=== PATIENT | female | born 1995 | race Caucasian/White ===

== ENCOUNTER 2016-08-03 20:35 | Outpatient (CLI) | payer OTHER ==
[2016-08-03] MEDS ORDERED: HYDROXYZINE PAMOATE 50 MG CAPSULE PO ONE (21:23)
[2016-08-03 21:26] LABS: AMORPHOUS SEDIMENT,URINE TRACE /HPF; APPEARANCE,URINE TURBID; BILIRUBIN,URINE NEGATIVE (NEGATIVE); GLUCOSE, URINE NEGATIVE (NEGATIVE); KETONES,URINE NEGATIVE (NEGATIVE); LEUKOCYTE ESTERASE,URINE SMALL (NEGATIVE); NITRITE,URINE NEGATIVE (NEGATIVE); PROTEIN,URINE NEGATIVE (NEGATIVE); URINE SPECIFIC GRAVITY 1.014; UROBILINOGEN,URINE NEGATIVE mg/dL (<2.0)
[2016-08-03] MEDS ORDERED: HYDROXYZINE PAMOATE 50 MG CAPSULE ONE (21:30)
[2016-08-03 21:37] LABS: URINE BARBITURATES SCREEN NEGATIVE; URINE METHADONE SCREEN NEGATIVE; URINE PHENCYCLIDINE SCREEN NEGATIVE
--- NOTE | 2016-08-04 04:46 | L&D Admission Assessment ---
LD ADM ASMT Datetime Report Generated by CPN: 08/04/2016 04:45 PATIENT ASSESSMENT Assessment Type: Triage (08/03/2016 20:53:Eunice Montenegro, RN) PAIN Pain Scale: 1 (08/03/2016 21:45:Eunice Montenegro, RN) Pain Scale: 2 (08/03/2016 20:53:Eunice Montenegro, RN) Pain Presence: Constant (08/03/2016 21:45:Eunice Montenegro, RN) Pain Presence: Constant (08/03/2016 20:53:Eunice Montenegro, RN) Pain Type: Ache (08/03/2016 21:45:Eunice Montenegro, RN) Pain Type: throbbing (08/03/2016 20:53:Eunice Montenegro RN) Pain Location: Abdomen (08/03/2016 21:45:Eunice Montenegro, RN) Pain Location: Abdomen (Annotations: from right rib cage to right hip, patient states she thinks that she may have pulled something trying to get away) (08/03/2016 20:53:Eunice Montenegro, RN) Pain Goal: 1 (08/03/2016 20:53:Eunice Montenegro RN) Pain Related to Contraction: No (08/03/2016 20:53:Eunice Montenegro, RN) CONTRACTIONS Frequency (min): none (08/03/2016 21:45:Eunice Montenegro, RN) Frequency (min): none (08/03/2016 21:15:Eunice Montenegro, RN) Resting Tone Kunkle: Relaxed (08/03/2016 21:45:Eunice Montenegro, RN) Resting Tone Kunkle: Relaxed (08/03/2016 21:15:Euince Montenegro, RN) NEURO Level of Consciousness: Fully Conscious (08/03/2016 20:53:Eunice Montenegro, RN) DTR's/Clonus: DTRs 2+; No Clonus (08/03/2016 20:53:Eunice Montenegro, RN) Headache: Denies (08/03/2016 20:53:Eunice Montenegro, RN) Dizziness: No (08/03/2016 20:53:Eunice Montenegro, RN) Blurred Vision: No (08/03/2016 20:53:Eunice Montenegro, RN) Extremity Numbness/Tingling : None (08/03/2016 20:53:Eunice Montenegro, RN) Extremity Movement: Full Range of Motion (08/03/2016 20:53:Eunice Montenegro, RN) CARDIOVASCULAR Heart Rhythm: Regular (08/03/2016 20:53:Eunice Montenegro, RN) Nailbeds: [place] (08/03/2016 20:53:Eunice Montenegro, RN) Capillary Refill: Less than 3 Seconds (08/03/2016 20:53:Eunice Montenegro, RN) Lower Extremities Edema Degree: None (08/03/2016 20:53:Eunice Montenegro, RN) Upper Extremities Edema: None (08/03/2016 20:53:Eunice Montenegro, RN) Upper Extremities Edema Degree: None (08/03/2016 20:53:Eunice Montenegro, RN) Facial Edema: None (08/03/2016 20:53:Eunice Montenegro RN) Day's Sign Left Leg: Negative (08/03/2016 20:53:Eunice Montenegro RN) Day's Sign Right Leg: Negative (08/03/2016 20:53:Eunice Montenegro RN) DVT RISK ASSESSMENT DVT Risk Age: Age less than 41 years (08/03/2016 20:53:Eunice Montenegro RN) DVT Risk BMI: BMI<31 (08/03/2016 20:53:Eunice Montenegro RN) DVT Risk Surgery: None Applicable (08/03/2016 20:53:Eunice Montenegro RN) DVT Risk Other: Women Only- or (<1 month) (08/03/2016 20:53:Eunice Montenegro RN) DVT Risk Total: 1 (08/03/2016 20:53:QS system process) DVT Risk Text: Low Risk (<10%) No specific measures, early ambulation (08/03/2016 20:53:QS system process) RESPIRATORY Respiratory Effort: Unlabored; Regular Rhythm; Equal Expansion (08/03/2016 20:53:Eunice Montenegro, RN) Breath Sounds, Left: Clear and Equal (08/03/2016 20:53:Eunice Montenegro, RN) Breath Sounds, Right: Clear and Equal (08/03/2016 20:53:Eunice Montenegro, RN) Cough Productivity: None (08/03/2016 20:53:Eunice Montenegro, RN) GASTROINTESTINAL Nausea/Vomiting: Present (Annotations: nausea) (08/03/2016 20:53:Eunice Montenegro, RN) Bowel Sounds: Normoactive; All Quadrants (08/03/2016 20:53:Eunice Montenegro, RN) RUQ Epigastric Pain: Denies (08/03/2016 20:53:Eunice Montenegro, RN) Bowel Patterns: Soft, Formed Stool (08/03/2016 20:53:Eunice Montenegro, RN) Hemorrhoids: None (08/03/2016 20:53:Eunice Montenegro, RN) Diet Type: Regular diet (08/03/2016 20:53:Eunice Montenegro, RN) Last Meal: 08/03/2016 15:00 (08/03/2016 20:53:Eunice Montenegro, RN) GENITOURINARY Bladder: Nondistended (08/03/2016 20:53:Eunice Montenegro, RN) Frequency of Urination: No (08/03/2016 20:53:Eunice Montenegro, RN) Urination Burning: No (08/03/2016 20:53:Eunice Montenegro, RN) CVA Tenderness: No (08/03/2016 20:53:Eunice Montenegro, RN) INTEGUMENTARY Skin Color: Normal for Race (08/03/2016 20:53:Euniec Montenegro, RN) Skin Temperature: Warm (08/03/2016 20:53:Eunice Montenegro, RN) Skin Moisture: Dry (08/03/2016 20:53:Eunice Montenegro, RN) Surgical Scars: none (08/03/2016 20:53:Eunice Montenegro, RN) ADE SKIN ASSESSMENT Ade Scale Sensory Perception: No Impairment- Responds to verbal commands. Has no sensory deficit which would limit ability to feel or voice pain or discomfort (08/03/2016 20:53:Eunice Montenegro RN) Ade Scale Moisture: Rarely Moist- Skin is usually dry. Linen only requires changing at routine intervals (08/03/2016 20:53:Eunice Montenegro RN) Ade Scale Activity: Walks Frequently- Walks outside the room at least twice a day and inside room at least every 2 hours during the day. (08/03/2016 20:53:Eunice Montenegro RN) Ade Scale Mobility: No Limitations- Makes major and frequent changes in position without assistance (08/03/2016 20:53:Eunice Montenegro RN) Ade Scale Nutrition: Excellent- Eats most of every meal. Never refuses a meal. Usually eats a total of 4 or more servings of meat and dairy products. Occasionally eats between meals. Does not require supplementation (08/03/2016 20:53:Eunice Montenegro RN) Ade Scale Friction and Shear: No Apparent Problem- Moves in bed and in chair independently and has sufficient muscle strength to lift up completely during move. Maintains good position in bed or chair at all times (08/03/2016 20:53:Eunice Montenegro RN) Ade Scale Total: 23 (08/03/2016 20:53:QS system process) Ade Scale Risk: No Risk of Pressure Ulcer Noted at this Time (08/03/2016 20:53:QS system process) SUPPORT Family Support: Significant Other supportive, at bedside frequently; Family supportive (08/03/2016 20:53:Eunice Montenegro RN) Emotional State: Calm/Relaxed (08/03/2016 20:53:Eunice Montenegro, RN) SAFETY Call Guy Within Reach: Yes (08/03/2016 20:53:Eunice Montenegro RN) Side Rails Up: Yes (08/03/2016 20:53:Eunice Montenegro RN) Bed Wheels Locked: Yes (08/03/2016 20:53:Eunice Montenegro RN) Arm Bands Present: Yes (08/03/2016 20:53:Eunice Montenegro RN) Isolation: [place] (08/03/2016 20:53:Eunice Montenegro RN) FALL SCREEN Fall Risk History of Falling: (0) No (08/03/2016 20:53:Eunice Montenegro RN) Fall Risk Secondary Diagnosis: (0) No (08/03/2016 20:53:Eunice Montenegro RN) Fall Risk Ambulatory Aid: (0) None/Bedrest/Wheelchair/Nurse Assist (08/03/2016 20:53:Eunice Montenegro RN) Fall Risk IV Therapy: (0) No (08/03/2016 20:53:Eunice Montenegro RN) Fall Risk Gait: (0) Normal/Bedrest/Immobile (08/03/2016 20:53:Eunice Montenegro RN) Fall Risk Mental Status: (0) Oriented to Own Ability (08/03/2016 20:53:Eunice Montenegro RN) Fall Risk Score: 0 (08/03/2016 20:53:QS system process) Fall Risk Score Definition: No Risk: No action required (08/03/2016 20:53:QS system process) RECENT TRAVEL/INFECTIOUS DISEASE Recent Exp Communicable Disease: No (08/03/2016 20:53:Eunice Montenegro RN) Cough or Fever: No (08/03/2016 20:53:Eunice Montenegro RN) Foreign Travel Past 10 Days: No (08/03/2016 20:53:Eunice Montenegro RN) Open Wounds or Sores: No (08/03/2016 20:53:Eunice Montenegro RN) Prior Antibiotic Resistance Tx: No (08/03/2016 20:53:Eunice Montenegro RN) Cultures Obtained: Not Applicable (08/03/2016 20:53:Eunice Montenegro RN) Isolation Initiated: No (08/03/2016 20:53:Eunice Montenegro RN) Pt/Family Education: Handwashing Hygiene (08/03/2016 20:53:Eunice Montenegro RN) BABY A FHR Baseline Rate (bpm) Baby A: 145 (08/03/2016 21:45:Eunice Montenegro RN) FHR Baseline Rate (bpm) Baby A: 150 (08/03/2016 21:15:Eunice Montenegro RN) Variability Baby A: Moderate 6-25 bpm (08/03/2016 21:45:Eunice Montenegro RN) Variability Baby A: Moderate 6-25 bpm (08/03/2016 21:15:Eunice Montenegro RN) Accelerations Baby A: 15X15 (08/03/2016 21:45:Eunice Montenegro RN) Accelerations Baby A: 15X15 (08/03/2016 21:15:Eunice Montenegro RN) Decelerations Baby A: None (08/03/2016 21:45:Eunice Montenegro RN) Decelerations Baby A: None (08/03/2016 21:15:Eunice Montenegro RN)
--- NOTE | 2016-08-04 04:46 | L&D Discharge Summary ---
OB Discharge Summary Datetime Report Generated by CPN: 08/04/2016 04:45 DISCHARGE DIAGNOSIS Diagnosis/Symptoms: Trauma/Fall Diagnoses/Symptoms Other: Fetus appropriate for gestational age Gestation: 29.5 Number of Babies in Womb: 1 Parity: 0 DIET/ACTIVITY/RESTRICTIONS Diet: Regular Activity: Normal Activity TEACHING/INSTRUCTIONS/REFERRALS Instructions Given To: Patient and Support Personnel Instructions Understood: Patient Verbalized Understanding; Support Person Verbalized Understanding Referrals: None Educational Materials- Other: Kick Counts DISCHARGE INFORMATION Discharged AMA: No Discharge Date/Time: 08/03/2016 21:53 Discharged To: Home Discharge Provider Name: Dr Fields Accompanied By: Support Personnel Discharge Method: Wheelchair Condition: Stable FOLLOW UP INFORMATION Follow Up With: Other-Annotate Follow Up On: As Scheduled Follow Up Phone Number: Other-Annotate Comments: Patient given 50mg vistaril prior to discharge. Advised patient to go to hospital for decreased movement, bleeding like a period, leaking of fluid, or contractions every 10 minutes. Patient without questions at this time.
--- NOTE | 2016-08-04 04:46 | L&D General Admission ---
General Admit Datetime Report Generated by CPN: 08/04/2016 04:45 INFORMATION Patient Age: 21 (08/03/2016 20:35:QS system process) EDC: 10/14/2016 00:00 (08/03/2016 20:39:Lisa Erickson RN) : 1 (08/03/2016 20:39:Eunice Montenegro RN) Para: 0 (08/03/2016 22:06:Eunice Montenegro RN) Para: 0 (08/03/2016 20:39:Eunice Montenegro RN) Term: 0 (08/03/2016 20:39:Eunice Montenegro RN) : 0 (08/03/2016 20:39:Eunice Montenegro RN) Spontaneous Abortions: 0 (08/03/2016 20:39:Eunice Montenegro RN) Induced Abortions: 0 (08/03/2016 20:39:Eunice Montenegro RN) Livin (08/03/2016 20:39:Eunice Montenegro RN) Cesareans: 0 (08/03/2016 20:39:Eunice Montenegro RN) VBACs: 0 (08/03/2016 20:39:Eunice Montenegro, RN) Ectopic: 0 (08/03/2016 20:39:Eunice Montenegro, RN) Multiple Births: 0 (08/03/2016 20:39:Eunice Montenegro RN) Baby, Number in Womb: 1 (08/03/2016 22:06:Eunice Montenegro RN) Baby, Number in Womb: 1 (08/03/2016 20:39:Eunice Montenegro, RN) CARE Primary Administrator: Other-Annotate (08/03/2016 20:39:Eunice Montenegro RN) Administrator Other: NHCL (08/03/2016 20:39:Eunice Montenegro RN) Adequate Care: Yes (08/03/2016 20:39:Eunice Montenegro RN) ALLERGIES Medication Allergy: No (08/03/2016 20:39:Eunice Montenegro RN) Medication Allergies: No Known Allergies (08/11/2014) (08/03/2016 20:35:QS system process) Latex Allergy: No Latex Allergies (08/03/2016 20:39:Eunice Montenegro RN) Food Allergies: none (08/03/2016 20:39:Eunice Montenegro RN) Environmental Allergies: none (08/03/2016 20:39:Eunice Montenegro RN) COMMUNICATION Primary Language: American (08/03/2016 20:39:Eunice Montenegro RN) Medical Tx Preferred Language: American (08/03/2016 20:39:Eunice Montenegro RN) Communication Barrier(s): None (08/03/2016 20:39:Eunice Montenegro RN) DEMOGRAPHICS Address: [address] [place] [id number] (08/03/2016 20:35:QS system process) Zipcode: [address] (08/03/2016 20:35:QS system process) Home (08/03/2016 20:35:QS system process) N: [phone] (08/03/2016 20:35:QS system process) Next of Kin Name: RAUL OLIVER (08/03/2016 20:35:QS system process) Next of Kin (08/03/2016 20:35:QS system process) Next of Kin Relationship: FA (08/03/2016 20:35:QS system process) Date of : 1995 (08/03/2016 20:35:QS system process) Marital Status: Single (08/03/2016 20:35:QS system process) Sex: Female (08/03/2016 20:35:QS system process) Race: (08/03/2016 20:35:QS system process) Ethnicity: Non- or (08/03/2016 20:35:QS system process) Gnosticist: None (08/03/2016 20:35:QS system process) DRUG AND ALCOHOL USE Alcohol: No (08/03/2016 20:39:Eunice Montenegro RN) Cigarettes: Never Smoker. [id number] (08/03/2016 20:39:Eunice Montenegro RN) Marijuana: Yes (08/03/2016 20:39:Eunice Montenegro RN) Marijuana Comments: positive THC UDS (08/03/2016 20:39:Eunice Montenegro RN) Cocaine: No (08/03/2016 20:39:Eunice Montenegro RN) Other Illicit Drugs: No (08/03/2016 20:39:Eunice Montenegro RN) Circumcision: N/A (08/03/2016 20:39:Eunice Montenegro, RN) Pain Management Plans: Epidural (08/03/2016 20:39:Eunice Montenegro, RN) Cultural/Spritual Practice: No (08/03/2016 20:39:Eunice Montenegro, RN) Spir/Cult Dietary Needs: No (08/03/2016 20:39:Eunice Montenegro, RN) LIVING SITUATION/DISCHARGE PLAN Adoption Requested: No (08/03/2016 20:39:Eunice Montenegro, RN) Pt Contact w/ Post : N/A (08/03/2016 20:39:Eunice Montenegro, RN) OB/PREVIOUS HISTORY Current Procedures: Ultrasound (08/03/2016 20:39:Eunice Montenegro RN) History of Previous : No (08/03/2016 20:39:Eunice Montenegro RN) History of Gestational Diabetes: No (08/03/2016 20:39:Eunice Montenegro RN) History of PIH: No (08/03/2016 20:39:Eunice Montenegro RN) History of Incompetent Cervix: No (08/03/2016 20:39:Eunice Montenegro RN) History of Placenta Previa/Abrup: No (08/03/2016 20:39:Eunice Montenegro RN) History of Macrosomia: No (08/03/2016 20:39:Eunice Montenegro RN) History of IUGR: No (08/03/2016 20:39:Eunice Montenegro RN) History of Hemorrhage: No (08/03/2016 20:39:Eunice Montenegro RN) History of Loss/Stillborn: No (08/03/2016 20:39:Eunice Montenegro RN) History of : No (08/03/2016 20:39:Eunice Montenegro RN) History of D (Rh) Sensitization: No (08/03/2016 20:39:Eunice Montenegro RN) History Recurrent Loss/Stillborn: No (08/03/2016 20:39:Eunice Montenegro RN) History Depression/PP Depression: Yes (08/03/2016 20:39:Eunice Montenegro RN) History of Uterine Anomaly/BARB: No (08/03/2016 20:39:Eunice Montenegro RN) History of Infertility: No (08/03/2016 20:39:Eunice Montneegro RN) History of ART Treatment: No (08/03/2016 20:39:Eunice Montenegro RN) History of BARB: No (08/03/2016 20:39:Eunice Montenegro RN) Comments Obstetrical History: G1: Current (08/03/2016 20:39:Eunice Montenegro RN) MEDICAL HISTORY Med Hx Diabetes: No (08/03/2016 20:39:Eunice Montenegro RN) Med Hx Hypertension: No (08/03/2016 20:39:Eunice Montenegro RN) Med Hx Heart Disease: No (08/03/2016 20:39:Eunice Montenegro RN) Med Hx Autoimmune Disorder: No (08/03/2016 20:39:Eunice Montenegro RN) Med Hx Kidney Disease/UTI: No (08/03/2016 20:39:Eunice Montenegro RN) Med Hx Neurologic/Epilepsy: No (08/03/2016 20:39:Eunice Montenegro RN) Med Hx Psychiatric Disorders: No (08/03/2016 20:39:Eunice Montenegro RN) Med Hx Hepatitis/Liver Disease: No (08/03/2016 20:39:Eunice Montenegro RN) Med Hx Varicosities/Phlebitis: No (08/03/2016 20:39:Eunice Montenegro RN) Med Hx Thyroid Dysfunction: No (08/03/2016 20:39:Eunice Montenegro RN) Med Hx Trauma/Violence: No (08/03/2016 20:39:Eunice Montenegro RN) Med Hx Blood Transfusion: No (08/03/2016 20:39:Eunice Montenegro RN) Med Hx Pulmonary (Asthma,TB): No (08/03/2016 20:39:Eunice Montenegro RN) Med Hx Breast: No (08/03/2016 20:39:Eunice Montenegro RN) Med Hx PROPERTY AND SUPPLY OFFICER Surgery: No (08/03/2016 20:39:Eunice Montenegro RN) Med Hx Hospitalization/Surgery: No (08/03/2016 20:39:Eunice Montenegro RN) Med Hx Anesthetic Complications: No (08/03/2016 20:39:Eunice Montenegro RN) Med Hx Abnormal Pap Smear: No (08/03/2016 20:39:Eunice Montenegro RN) Other Medical Diseases: No (08/03/2016 20:39:Eunice Montenegro RN) Med Hx Significant Family Hx: No (08/03/2016 20:39:Eunice Montenegro RN) Details of Med/Surg Hx: History of depression and anxiety (08/03/2016 20:39:Eunice Montenegro RN) INFECTIOUS HISTORY Inf Hx Gonorrhea: No (08/03/2016 20:39:Eunice Montenegro RN) Inf Hx Chlamydia: No (08/03/2016 20:39:Eunice Montenegro RN) Inf Hx Syphilis: No (08/03/2016 20:39:Eunice Montenegro RN) Inf Hx HIV/AIDS: No (08/03/2016 20:39:Eunice Montenegro RN) Inf Hx Human Papilloma Virus: No (08/03/2016 20:39:Eunice Montenegro RN) Inf Hx Pt/Partner Genital Herpes: No (08/03/2016 20:39:Eunice Montenegro RN) Inf Hx Tuberculosis/Exposure: No (08/03/2016 20:39:Eunice Montenegro RN) Inf Hx Hepatitis B,C: No (08/03/2016 20:39:Eunice Montenegro RN) Inf Hx Rash or Viral Illness: No (08/03/2016 20:39:Eunice Montenegro RN) GENETIC HISTORY Gen Hx Age >=35 at MICHELLE: No (08/03/2016 20:39:Eunice Montenegro RN) Gen Hx Thalassemia: No (08/03/2016 20:39:Eunice Montenegro RN) Gen Hx Congenital Heart Defect: No (08/03/2016 20:39:Eunice Montenegro RN) Gen Hx Neural Tube Defect: No (08/03/2016 20:39:Eunice Montenegro RN) Gen Hx Down's Syndrome: No (08/03/2016 20:39:Eunice Montenegro RN) Gen Hx Phil-Sachs: No (08/03/2016 20:39:Eunice Montenegro RN) Gen Hx Ysabel: No (08/03/2016 20:39:Eunice Montenegro RN) Gen Hx Familial Dysautonomia: No (08/03/2016 20:39:Eunice Montenegro RN) Gen Hx Sickle Cell Disease/Trait: No (08/03/2016 20:39:Eunice Montenegro RN) Gen Hx Hemophilia/Blood Disorder: No (08/03/2016 20:39:Eunice Montenegro RN) Gen Hx Muscular Dystrophy: No (08/03/2016 20:39:Eunice Montenegro RN) Gen Hx Cystic Fibrosis: No (08/03/2016 20:39:Eunice Montenegro RN) Gen Hx Huntingtons Chorea: No (08/03/2016 20:39:Eunice Montenegro RN) Gen Hx Mental Retardation/Autism: No (08/03/2016 20:39:Eunice Montenegro RN) Gen Hx Tested for Fragile X: No (08/03/2016 20:39:Eunice Montenegro RN) Gen Hx Other Inher/Chromosomal: No (08/03/2016 20:39:Eunice Montenegro RN) Gen Hx Maternal Metabolic DO: No (08/03/2016 20:39:Eunice Montenegro RN) Gen Hx Pt Father or FOB Defect: No (08/03/2016 20:39:Eunice Montenegro RN) Gen Hx Other Genetic History: No (08/03/2016 20:39:Eunice Montenegro RN) Gen Hx Drugs/Meds since LMP: No (08/03/2016 20:39:Eunice Montenegro RN)
--- NOTE | 2016-08-04 04:46 | L&D Current Admission ---
Current Admit Datetime Report Generated by CPN: 08/04/2016 04:45 ADMISSION INFORMATION Chief Complaint: Trauma or Fall (08/03/2016 20:53:Eunice Montenegro, RN)
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
--- NOTE | 2016-08-04 04:46 | Antepartum Discharge Summary ---
Antepartum DC Datetime Report Generated by CPN: 08/04/2016 04:45 DIET/ACTIVITY/RESTRICTIONS Diet: Regular (08/03/2016 22:06:Eunice Montenegro, RN) Activity: Normal Activity (08/03/2016 22:06:Eunice Montenegro, RN) TEACHING/INSTRUCTIONS/REFERRALS Instructions Given To: Patient and Support Personnel (08/03/2016 22:06:Eunice Montenegro, RN) Instructions Understood: Patient Verbalized Understanding; Support Person Verbalized Understanding (08/03/2016 22:06:Eunice Montenegro RN) Referrals: None (08/03/2016 22:06:Eunice Montenegro RN) Educational Materials- Other: [employer] Counts (08/03/2016 22:06:Eunice Montenegro RN) DISCHARGE INFORMATION Discharged AMA: No (08/03/2016 22:06:Eunice Montenegro RN) Discharge Date/Time: 08/03/2016 21:53 (08/03/2016 22:06:Eunice Montenegro RN) Discharged To: Home (08/03/2016 22:06:Eunice Montenegro RN) Discharge Provider Name: Dr Fields (08/03/2016 22:06:Eunice Montenegro RN) Accompanied By: Support Personnel (08/03/2016 22:06:Eunice Montenegro RN) Discharge Method: Wheelchair (08/03/2016 22:06:Eunice Montenegro RN) Condition: Stable (08/03/2016 22:06:Eunice Montenegro RN) FOLLOW UP INFORMATION Follow Up With: Other-Annotate (08/03/2016 22:06:Eunice Montenegro RN) Follow Up On: As Scheduled (08/03/2016 22:06:Eunice Montenegro RN) Follow Up Phone Number: Other-Annotate (08/03/2016 22:06:Eunice Montenegro RN) Comments: Patient given 50mg vistaril prior to discharge. Advised patient to go to hospital for decreased movement, bleeding like a period, leaking of fluid, or contractions every 10 minutes. Patient without questions at this time. (08/03/2016 22:06:Eunice Montenegro RN)
== END 2016-08-03 20:53 | disposition home or self-care (01) ==
LOC: LC 20:35
PROVIDERS: ATTEND Obstetrics & Gynecology
PROC: 4A1HXCZ Monitoring of Products of Conception, Cardiac Rate, External Approach (ICD-10-PCS; principal; 2016-08-03)
DX: Z34.93 Encounter for supervision of normal pregnancy, unspecified, third trimester (principal); Z3A.29 29 weeks gestation of pregnancy
CPT/HCPCS: 81001; 80307; 59899; G0480 ×2

== ENCOUNTER 2017-10-27 12:39 | Emergency (ER) | payer SELFPAY ==
[2017-10-27] MEDS ORDERED: ONDANSETRON HCL INJ/PF 4 MG/2 ML SDV IV ONE ×2 (12:41→12:50)
[2017-10-27] MEDS ORDERED: NALOXONE HCL INJ 2 MG/2 ML DISP.SYRIN ONE (12:42)
[2017-10-27] MEDS ORDERED: ONDANSETRON HCL INJ/PF 4 MG/2 ML SDV ONE (12:42)
[2017-10-27] MEDS ORDERED: NALOXONE HCL INJ 2 MG/2 ML DISP.SYRIN IV ONE (12:54)
[2017-10-27] MEDS: NORMAL SALINE 1000 ML 1,000 ML IV PRN ×2 (12:58→13:04)
[2017-10-27 14:17] LABS: APPEARANCE,URINE SLIGHTLY-CLOUDY; BILIRUBIN,URINE NEGATIVE (NEGATIVE); COLOR,URINE YELLOW; GLUCOSE, URINE NEGATIVE (NEGATIVE); KETONES,URINE NEGATIVE (NEGATIVE); LEUKOCYTE ESTERASE,URINE TRACE (NEGATIVE); NITRITE,URINE NEGATIVE (NEGATIVE); PROTEIN,URINE 30 mg/dL (NEGATIVE); URINE SPECIFIC GRAVITY 1.012; UROBILINOGEN,URINE NEGATIVE mg/dL (<2.0)
[2017-10-27 14:26] LABS: URINE AMPHETAMINES SCREEN NEGATIVE; URINE BARBITURATES SCREEN NEGATIVE; URINE BENZODIAZEPINES SCREEN NEGATIVE; URINE COCAINE SCREEN NEGATIVE; URINE MARIJUANA (THC) SCREEN UNCONFIRMED POSITIVE; URINE METHADONE SCREEN NEGATIVE; URINE PHENCYCLIDINE SCREEN NEGATIVE
[2017-10-27] MEDS ORDERED: KETOROLAC TROMETHAMINE INJ/PF 30 MG/1 ML SDV IV ONE (14:45)
[2017-10-27] MEDS ORDERED: IBUPROFEN 600 MG TABLET PO ONE (14:45)
[2017-10-27 14:46] LABS: ABSOLUTE LYMPHOCYTES (AUTO) 2.5 10^3/uL (0.5-4.7); ABSOLUTE MONOCYTES (AUTO) 0.4 10^3/uL (0.1-1.4); ABSOLUTE NEUT (AUTO) 6.3 10^3/uL (1.7-8.2); BASOPHILS % (AUTO) 0.5 % (0-2); EOSINOPHILS % (AUTO) 0.5 % (0-6); HEMATOCRIT 31.7 % (36.0-47.0); HEMOGLOBIN 9.9 g/dL (12.0-15.5); LYMPHOCYTES % (AUTO) 26.5 % (13-45); MEAN CORPUSCULAR HEMOGLOBIN 21.1 pg (27.0-33.4); MEAN CORPUSCULAR HGB CONC 31.2 g/dL (32.0-36.0); MEAN CORPUSCULAR VOLUME 68 fl (80-97); MONOCYTES % (AUTO) 4.3 % (3-13); PLATELET COUNT 279 10^3/uL (150-450); RED BLOOD COUNT 4.69 10^6/uL (3.72-5.28); RED CELL DISTRIBUTION WIDTH 18.4 % (11.5-14.0); SEGMENTED NEUTROPHILS % (AUTO) 68.2 % (42-78); TOTAL CELLS COUNTED % (AUTO) 100 %; WHITE BLOOD COUNT 9.3 10^3/uL (4.0-10.5)
[2017-10-27 14:58] LABS: ANION GAP 8 (5-19); BLOOD UREA NITROGEN 16 mg/dL (7-20); CALCIUM 9.2 mg/dL (8.4-10.2); CARBON DIOXIDE 26 mmol/L (22-30); CHLORIDE 110 mmol/L (98-107); GLUCOSE 99 mg/dL (75-110); POTASSIUM 4.4 mmol/L (3.6-5.0); SODIUM 144.4 mmol/L (137-145)
--- NOTE | 2017-10-27 15:33 | ER Document Report ---
ED General - General Chief Complaint: Overdose Stated Complaint: OD Time Seen by Provider: 10/27/17 12:40 TRAVEL OUTSIDE OF THE [place] IN LAST 30 DAYS: No COUNTRY TRAVELED TO/FROM: [facility] Patient complains to provider of: Overdose Notes: He patient came in private vehicle for heroin overdose. Patient was found to be blue and cyanotic decreased respirations patient was brought back to the trauma room #2 for evaluation. Patient cyanotic lips IV access was established and patient was BVM by myself patient was given 2 mg of Narcan. After which patient awoke appropriately for an acute overdose. Once the patient was more awake patient does admit to using heroin states recently was released from rehab use the same amount she normally does. Patient otherwise denies any head pain chest pain abdominal pain patient was slightly nauseous with some vomiting after menstruation of Narcan. Patient states no other drugs patient does have a history of intermittent marijuana use. No alcohol today. - Related Data Allergies/Adverse Reactions: No Known Allergies Allergy (Verified 08/11/14 01:48) Past Medical History - Social History Smoking Status: Current Every Day Smoker Drug Abuse: Heroin Family History: Reviewed & Not Pertinent Patient has suicidal ideation: No Patient has homicidal ideation: No Renal/ Medical History: Denies: Hx Peritoneal Dialysis - Immunizations Hx Diphtheria, Pertussis, Tetanus Vaccination: Yes Review of Systems - Review of Systems Constitutional: Other - overdose EENT: No symptoms reported Cardiovascular: No symptoms reported Respiratory: No symptoms reported Gastrointestinal: No symptoms reported Genitourinary: No symptoms reported Female Genitourinary: No symptoms reported Musculoskeletal: No symptoms reported Skin: No symptoms reported Hematologic/Lymphatic: No symptoms reported Neurological/Psychological: No symptoms reported Physical Exam - Vital signs Vitals: Resp Pulse Ox 20 97 10/27/17 12:41 10/27/17 12:41 Interpretation: Normal - Notes Notes: Exam after Narcan - General General appearance: Appears well, Alert - HEENT Head: Normocephalic, Atraumatic Eyes: Normal Pupils: PERRL - Respiratory Respiratory status: No respiratory distress Chest status: Nontender Breath sounds: Normal Chest palpation: Normal - Cardiovascular Rhythm: Regular Heart sounds: Normal auscultation Murmur: No - Abdominal Inspection: Normal Distension: No distension Bowel sounds: Normal Tenderness: Nontender Organomegaly: No organomegaly - Back Back: Normal, Nontender - Extremities General upper extremity: Normal inspection, Nontender, Normal color, Normal ROM , Normal temperature General lower extremity: Normal inspection, Nontender, Normal color, Normal ROM , Normal temperature, Normal weight bearing. No: Day's sign - Neurological Neuro grossly intact: Yes Cognition: Normal Orientation: AAOx4 Carmita Coma Scale Eye Opening: Spontaneous Carmita Coma Scale Verbal: Oriented Carmita Coma Scale Motor: Obeys Commands Carmita Coma Scale Total: 15 Speech: Normal Motor strength normal: LUE, RUE, LLE, RLE Sensory: Normal - Psychological Associated symptoms: Normal affect, Normal mood - Skin Skin Temperature: Warm Skin Moisture: Dry Skin Color: Normal Course - Re-evaluation Re-evalutation: 10/27/17 15:28 Patient coming in for an overdose has been monitored for greater than 4 hours here in the ER. Patient has not needed any further re-dosing of her Narcan. Patient is able tolerate p.o. Patient was evaluated by our pediatric social worker will continue to follow with the patient patient has expressed interest in going back in rehab which we will aid. At this time laboratory studies not show slight anemia. Patient is not aware of any anemia in the past. Patient will be started on iron tablets as likely microcytic. Patient will be discharged home. - Vital Signs Vital signs: Temp Pulse Resp BP Pulse Ox 99.1 F 16 117/83 98 10/27/17 13:50 10/27/17 15:01 10/27/17 15:01 10/27/17 15:01 - Laboratory Result Diagrams: 10/27/17 14:27 10/27/17 14:27 Laboratory results interpreted by me: 10/27/17 10/27/17 10/27/17 13:40 14:27 14:27 Hgb 9.9 L Hct 31.7 L MCV 68 L MCH 21.1 L MCHC 31.2 L RDW 18.4 H Chloride 110 H Urine Protein 30 H Urine Blood SMALL H Ur Leukocyte Esterase TRACE H Critical Care Note - Critical Care Note Total time excluding time spent on procedures (mins): 35 Comments: Multiple evaluations for overdose Discharge - Discharge Clinical Impression: Anemia Qualifiers: Anemia type: unspecified type Qualified Code(s): D64.9 - Anemia, unspecified Opiate overdose Qualifiers: Encounter type: initial encounter Injury intent: accidental or unintentional Qualified Code(s): T40.601A - Poisoning by unspecified narcotics, accidental ( unintentional), initial encounter Disposition: HOME, SELF-CARE Instructions: Anemia ([facility]), Overdose ([facility]) Additional Instructions: You were seen in the ER today for a opiate overdose. Upon arrival to the ER you were blue and you were not breathing. You came very close to requiring life support to keep you alive. Fortunately we were able to give you a reversal medication: Narcan. At this time you have been observed in ER with no signs of any other complications of your overdose. Please rest today and resume normal activities tomorrow. Drink plenty water and eat a healthy diet. Sometimes after acute overdoses were we had to revive you with Narcan he can experience nausea I will send you home with Zofran tablets to help out with the nausea. Please make sure that we have good contact information for you as at our pediatric social worker will give you for the resources to aid in finding rehab. Return to the ER for any concerning issues
[2017-10-27] MEDS ORDERED: ONDANSETRON ODT 4 MG TAB (6 TAB/ER DISP) PO PRN (15:36)
[2017-10-27 15:57] VITALS: BP 105/64
== END 2017-10-27 15:57 | disposition home or self-care (01) ==
LOC: ER 12:39
DX: T40.1X1A Poisoning by heroin, accidental (unintentional), initial encounter (principal); R23.0 Cyanosis; R06.89 Other abnormalities of breathing; D64.9 Anemia, unspecified; R11.2 Nausea with vomiting, unspecified; T50.7X5A Adverse effect of analeptics and opioid receptor antagonists, initial encounter; Y92.238 Other place in hospital as the place of occurrence of the external cause; F17.200 Nicotine dependence, unspecified, uncomplicated; F11.10 Opioid abuse, uncomplicated
CPT/HCPCS: 99284; 96361; 96374; 96375; 36415; 84703; 85025; 80048; 81001; 80307; J1885; J2405; J2310; J7030

== ENCOUNTER 2018-02-03 19:29 | Emergency (ER) | payer MEDICAID ==
[2018-02-03] MEDS ORDERED: ACETAMINOPHEN 325 MG TABLET PO ONE (19:50)
[2018-02-03] MEDS ORDERED: NORMAL SALINE 1000 ML 1,000 ML IV PRN (19:51)
--- NOTE | 2018-02-03 19:54 | ER Document Report ---
ED Medical Screen (RME) - General Chief Complaint: Nausea/Vomiting Stated Complaint: ABDOMINAL PAIN Time Seen by Provider: 02/03/18 19:50 TRAVEL OUTSIDE OF THE [place] IN LAST 30 DAYS: No COUNTRY TRAVELED TO/FROM: [facility] - [facility] Notes: 02/03/18 19:54 Fever chills UTI symptoms burning right flank pain ongoing for the last 7 days. - Related Data Allergies/Adverse Reactions: No Known Allergies Allergy (Verified 08/11/14 01:48) Past Medical History Renal/ Medical History: Denies: Hx Peritoneal Dialysis - Immunizations Hx Diphtheria, Pertussis, Tetanus Vaccination: Yes Review of Systems - Review of Systems Constitutional: Other - Fever dysuria Physical Exam - Vital signs Vitals: Temp Pulse Resp BP Pulse Ox 102.9 F H 139 H 16 116/67 100 02/03/18 19:40 02/03/18 19:40 02/03/18 19:40 02/03/18 19:40 02/03/18 19:40 - Respiratory Respiratory status: No respiratory distress Chest status: Nontender Breath sounds: Normal Chest palpation: Normal Course - Vital Signs Vital signs: Temp Pulse Resp BP Pulse Ox 102.9 F H 139 H 16 116/67 100 02/03/18 19:40 02/03/18 19:40 02/03/18 19:40 02/03/18 19:40 02/03/18 19:40
[2018-02-03 20:27] LABS: APPEARANCE,URINE CLOUDY; BILIRUBIN,URINE NEGATIVE (NEGATIVE); COLOR,URINE YELLOW; GLUCOSE, URINE NEGATIVE (NEGATIVE); KETONES,URINE NEGATIVE (NEGATIVE); LEUKOCYTE ESTERASE,URINE LARGE (NEGATIVE); NITRITE,URINE POSITIVE (NEGATIVE); PROTEIN,URINE 30 mg/dL (NEGATIVE); UROBILINOGEN,URINE NEGATIVE mg/dL (<2.0)
[2018-02-03] MEDS ORDERED: CEFTRIAXONE 1 GM/D5W RTU 1 GM/50 ML RTUPB IV ONE (20:45)
[2018-02-03 20:50] LABS: URINE AMPHETAMINES SCREEN UNCONFIRMED POSITIVE; URINE BARBITURATES SCREEN NEGATIVE; URINE BENZODIAZEPINES SCREEN NEGATIVE; URINE COCAINE SCREEN NEGATIVE; URINE MARIJUANA (THC) SCREEN UNCONFIRMED POSITIVE; URINE METHADONE SCREEN NEGATIVE; URINE PHENCYCLIDINE SCREEN NEGATIVE
[2018-02-03] MEDS ORDERED: ONDANSETRON 4 MG TAB.RAPDIS PO ONE (21:02)
[2018-02-03] MEDS ORDERED: MORPHINE SULFATE 10 MG/ML INJ IV ONE (21:02)
[2018-02-03] MEDS ORDERED: CEFTRIAXONE INJ 1000 MG VIAL ONE (21:19)
[2018-02-03 21:26] LABS: ABSOLUTE BASOPHILS # (AUTO) 0.1 10^3/uL (0.0-0.2); ABSOLUTE LYMPHOCYTES (AUTO) 4.2 10^3/uL (0.5-4.7); ABSOLUTE MONOCYTES (AUTO) 2.2 10^3/uL (0.1-1.4); ABSOLUTE NEUT (AUTO) 10.1 10^3/uL (1.7-8.2); BASOPHILS % (AUTO) 0.5 % (0-2); HEMATOCRIT 32.2 % (36.0-47.0); HEMOGLOBIN 10.3 g/dL (12.0-15.5); LYMPHOCYTES % (AUTO) 25.2 % (13-45); MEAN CORPUSCULAR HEMOGLOBIN 21.6 pg (27.0-33.4); MEAN CORPUSCULAR HGB CONC 31.9 g/dL (32.0-36.0); MEAN CORPUSCULAR VOLUME 68 fl (80-97); MONOCYTES % (AUTO) 13.5 % (3-13); PLATELET COUNT 381 10^3/uL (150-450); RED BLOOD COUNT 4.75 10^6/uL (3.72-5.28); RED CELL DISTRIBUTION WIDTH 17.8 % (11.5-14.0); SEGMENTED NEUTROPHILS % (AUTO) 60.8 % (42-78); TOTAL CELLS COUNTED % (AUTO) 100 %; WHITE BLOOD COUNT 16.6 10^3/uL (4.0-10.5)
[2018-02-03 21:45] LABS: ALANINE AMINOTRANSFERASE 21 U/L (9-52); ALBUMIN 4.2 g/dL (3.5-5.0); ALKALINE PHOSPHATASE 82 U/L (38-126); ANION GAP 15 (5-19); ASPARTATE AMINO TRANSFERASE 28 U/L (14-36); BILIRUBIN,DIRECT 0.4 mg/dL (0.0-0.4); BILIRUBIN,TOTAL 0.9 mg/dL (0.2-1.3); BLOOD UREA NITROGEN 7 mg/dL (7-20); CALCIUM 9.2 mg/dL (8.4-10.2); CARBON DIOXIDE 21 mmol/L (22-30); CHLORIDE 98 mmol/L (98-107); CREATINE KINASE 46 U/L (30-135); GLUCOSE 90 mg/dL (75-110); LIPASE 15.1 U/L (23-300); POTASSIUM 3.2 mmol/L (3.6-5.0); TOTAL PROTEIN 8.4 g/dL (6.3-8.2)
--- NOTE | 2018-02-03 22:40 | ER Document Report ---
ED General - General Chief Complaint: Nausea/Vomiting Stated Complaint: ABDOMINAL PAIN Time Seen by Provider: 02/03/18 19:50 Notes: Patient is a 22-year-old female without chronic medical problems, does have a history of IV drug use who presents with 1 week of dysuria and several days of progressively worsening bilateral flank pain, nausea and fever. The patient also notes over 1 week of dysuria. She has not previously sought medical care. She denies a history of similar symptoms in the past. She does not have a primary care doctor. She describes the pain in her bilateral flanks is being somewhat worse towards the left versus the right and is a dull, throbbing, constant pain. Nothing seems to improve or worsen her symptoms. She has been able to tolerate oral intake at home. TRAVEL OUTSIDE OF THE [place] IN LAST 30 DAYS: No COUNTRY TRAVELED TO/FROM: [facility] - Related Data Allergies/Adverse Reactions: No Known Allergies Allergy (Verified 08/11/14 01:48) Past Medical History - General Information source: Patient - Social History Smoking Status: Current Every Day Smoker Frequency of alcohol use: None Drug Abuse: Heroin, Marijuana, Methamphetamine Lives with: Family Family History: Reviewed & Not Pertinent Patient has suicidal ideation: No Patient has homicidal ideation: No Renal/ Medical History: Denies: Hx Peritoneal Dialysis - Immunizations Hx Diphtheria, Pertussis, Tetanus Vaccination: Yes Review of Systems - Review of Systems Notes: Constitutional: Positive for fever. HENT: Negative for sore throat. Eyes: Negative for visual changes. Cardiovascular: Negative for chest pain. Respiratory: Negative for shortness of breath. Gastrointestinal: Positive for abdominal pain and vomiting Genitourinary: Positive for dysuria. Musculoskeletal: Negative for back pain. Skin: Negative for rash. Neurological: Negative for headaches, weakness or numbness. 10 point ROS negative except as marked above and in HPI. Physical Exam - Vital signs Vitals: Temp Pulse Resp BP Pulse Ox 102.9 F H 139 H 16 116/67 100 02/03/18 19:40 02/03/18 19:40 02/03/18 19:40 02/03/18 19:40 02/03/18 19:40 Interpretation: Tachycardic, Febrile Notes: PHYSICAL EXAMINATION: GENERAL: Appears mildly uncomfortable but in no acute distress HEAD: Atraumatic, normocephalic. EYES: Pupils equal round and reactive to light, extraocular movements intact, sclera anicteric, conjunctiva are normal. ENT: nares patent, oropharynx clear without exudates. Moderately dry mucous membranes. NECK: Normal range of motion, supple without lymphadenopathy LUNGS: Breath sounds clear to auscultation bilaterally and equal. No wheezes rales or rhonchi. HEART: Regular tachycardia without murmurs ABDOMEN: Soft, bilateral CVA tenderness but no additional abdominal tenderness on palpation, normoactive bowel sounds. No guarding, no rebound. No masses appreciated. EXTREMITIES: Normal range of motion, no pitting or edema. No cyanosis. NEUROLOGICAL: No focal neurological deficits. Moves all extremities spontaneously and on command. PSYCH: Normal mood, normal affect. SKIN: Warm, Dry, normal turgor, no rashes or lesions noted. Course - Re-evaluation Re-evalutation: 02/03/18 22:38 Presentation is most consistent with acute pyelonephritis. Laboratories do demonstrate a large amount of white blood cells in the urine as well as bacteria. Patient has had constitutional symptoms at home as well as a fever. CVA tenderness is present on exam. The remainder laboratories are relatively unremarkable without evidence of renal dysfunction. Leukocytosis is present. I do not suspect an acute appendicitis, biliary pathology, pancreatitis, intra- abdominal abscess, or tubo-ovarian abscess based on history and examination. Patient has been given a dose of IV ceftriaxone and a liter of fluids. Patient is able to tolerate oral intake without difficulty. I did offer admission which the patient declined stating she needs to go home and be with her 1-year- old child. I did also address with her ongoing substance abuse and encourage cessation. Will be discharged home on 7 day course of cephalexin. A urine culture has been sent. At this time will discharge with return precautions and follow-up recommendations. Verbal discharge instructions given a the bedside and opportunity for questions given. Medication warnings reviewed. Patient is in agreement with this plan and has verbalized understanding of return precautions and the need for primary care follow-up in the next 24-72 hours. - Vital Signs Vital signs: Temp Pulse Resp BP Pulse Ox 99.6 F 139 H 16 116/73 99 02/03/18 23:13 02/03/18 19:40 02/03/18 23:13 02/03/18 23:13 02/03/18 23:13 - Laboratory Result Diagrams: 02/03/18 20:50 02/03/18 20:50 Laboratory results interpreted by me: 02/03/18 02/03/18 02/03/18 20:06 20:50 20:50 WBC 16.6 H Hgb 10.3 L Hct 32.2 L MCV 68 L MCH 21.6 L MCHC 31.9 L RDW 17.8 H Monocytes % 13.5 H Absolute Neutrophils 10.1 H Absolute Monocytes 2.2 H Sodium 134.0 L Potassium 3.2 L Carbon Dioxide 21 L Total Protein 8.4 H Lipase 15.1 L Urine Protein 30 H Urine Blood LARGE H Urine Nitrite POSITIVE H Ur Leukocyte Esterase LARGE H Discharge - Discharge Clinical Impression: Pyelonephritis Sepsis Qualifiers: Sepsis type: sepsis due to unspecified organism Qualified Code(s): A41.9 - Sepsis, unspecified organism Condition: Stable Disposition: HOME, SELF-CARE Additional Instructions: You have been diagnosed with a condition called pyelonephritis which is an infection involving your kidneys and bladder. You have been given a dose of antibiotics here in the emergency department to help begin to treat this infection. Your also being sent home on antibiotics. Please start taking these later on today when you fill the prescription. Complete the course even if you feel better. Please return if you have persistent vomiting, pass out, have worsening pain, become unable to tolerate fluids, or have any other symptoms that are concerning to you. Please follow-up with your primary care physician in the next 24-48 hours. Prescriptions: Cephalexin Monohydrate [Keflex 500 mg Capsule] 500 mg PO Q6H 7 Days capsule
[2018-02-03 23:17] VITALS: BP 116/73
== END 2018-02-03 23:17 | disposition home or self-care (01) ==
LOC: ER 19:29
DX: A41.9 Sepsis, unspecified organism (principal); N12 Tubulo-interstitial nephritis, not specified as acute or chronic; R10.9 Unspecified abdominal pain; R50.9 Fever, unspecified; R30.0 Dysuria; F17.200 Nicotine dependence, unspecified, uncomplicated; F12.10 Cannabis abuse, uncomplicated; F11.10 Opioid abuse, uncomplicated; F14.10 Cocaine abuse, uncomplicated; R11.2 Nausea with vomiting, unspecified; R00.0 Tachycardia, unspecified
CPT/HCPCS: 36415; 87040; 87086; 82550; 84702; 83690; 85025; 87088; 80053; 81001; 87186; 80307; 83605; J3490; S0119; J2270; J0696; J7030

== ENCOUNTER 2018-09-08 14:58 | Emergency (ER) | payer MEDICAID ==
--- NOTE | 2018-09-08 16:13 | ER Document Report ---
ED Medical Screen (RME) - General Chief Complaint: Abscess Stated Complaint: ABSCESS/RIGHT ARM Time Seen by Provider: 09/08/18 16:09 Notes: Patient is a 23-year-old female history of IV drug use that presents to the emergency department for chief complaint of right arm abscess. ROS: Other than noted above, the 12 point review of systems was reviewed with the patient and were negative, all pertinent findings are included in the HPI. PHYSICAL EXAMINATION: Vital signs reviewed. GENERAL: Well-appearing, well-nourished and in no acute distress. HEAD: Atraumatic, normocephalic. EYES: Pupils equal round extraocular movements intact, conjunctiva are normal. ENT: Nares patent NECK: Normal range of motion CV: Heart regular rate and rhythm LUNGS: No respiratory distress Musculoskeletal: Normal range of motion, there is an abscess noted in the right antecubital fossa, flexion was noted, tender to palpate and erythema. No lymphangitis. NEUROLOGICAL: Normal speech PSYCH: Normal mood, normal affect. MDM: Patient seen and examined for rapid initial assessment. Vital signs reviewed. A comprehensive ED assessment and evaluation of the patient, analysis of test results and completion of the medical decision making process will be conducted by additional ED providers. *Note is created using voice recognition software and may contain spelling, syntax or grammatical errors. TRAVEL OUTSIDE OF THE [place] IN LAST 30 DAYS: No COUNTRY TRAVELED TO/FROM: [facility] - Related Data Allergies/Adverse Reactions: No Known Allergies Allergy (Verified 09/08/18 16:06) Past Medical History - Social History Chew tobacco use (# tins/day): No Frequency of alcohol use: None Drug Abuse: Marijuana Renal/ Medical History: Denies: Hx Peritoneal Dialysis - Immunizations Hx Diphtheria, Pertussis, Tetanus Vaccination: Yes Physical Exam - Vital signs Vitals: Temp Pulse Resp BP Pulse Ox 99.2 F 103 H 16 130/85 H 97 09/08/18 15:10 09/08/18 15:10 09/08/18 15:10 09/08/18 15:10 09/08/18 15:10 Course - Vital Signs Vital signs: Temp Pulse Resp BP Pulse Ox 99.2 F 103 H 16 130/85 H 97 09/08/18 15:10 09/08/18 15:10 09/08/18 15:10 09/08/18 15:10 09/08/18 15:10
--- NOTE | 2018-09-08 17:37 | RADIOLOGY REPORT (SQ) ---
EXAM DESCRIPTION: ELBOW RIGHT OVER 2 VIEWS COMPLETED DATE/TIME: 09/08/2018 5:15 pm REASON FOR STUDY: abscess, possible retained needle COMPARISON: None. EXAM PARAMETERS: NUMBER OF VIEWS: Four views. TECHNIQUE: AP, lateral and 2 oblique radiographic images acquired of the right elbow. LIMITATIONS: None. FINDINGS: MINERALIZATION: Normal. BONES: No acute fracture or dislocation. No worrisome bone lesions. JOINTS: No effusion. SOFT TISSUES: Prominent anterior soft tissue swelling. No radiopaque foreign body. OTHER: No other significant finding. IMPRESSION: Prominent anterior soft tissue swelling. No radiopaque foreign body.NO FRACTURE. TECHNICAL DOCUMENTATION: JOB ID: [id number] [place]-72 2010 [employer]- All Rights Reserved Reading location - IP/workstation name: [email or web address]
--- NOTE | 2018-09-08 18:05 | ER Document Report ---
ED General - General Chief Complaint: Abscess Stated Complaint: ABSCESS/RIGHT ARM Time Seen by Provider: 09/08/18 16:09 Notes: Patient is a 23-year-old female history of IV drug use that presents to the emergency department for chief complaint of right arm abscess. She states she was using heroin 2 weeks ago and immediately developed pain after shooting up thinking maybe she missed the vein. She had persistent pain but ignored it until about 3 days ago when an abscess started to develop and the pain became acutely worse. She denies fevers or chills, nausea or vomiting, shortness of breath or chest pain. She denies any other skin lesions. TRAVEL OUTSIDE OF THE [place] IN LAST 30 DAYS: No COUNTRY TRAVELED TO/FROM: [facility] - Related Data Allergies/Adverse Reactions: No Known Allergies Allergy (Verified 09/08/18 16:06) Past Medical History - Social History Smoking Status: Current Every Day Smoker Chew tobacco use (# tins/day): No Frequency of alcohol use: None Drug Abuse: Marijuana Family History: Reviewed & Not Pertinent Patient has suicidal ideation: No Patient has homicidal ideation: No Renal/ Medical History: Denies: Hx Peritoneal Dialysis - Immunizations Hx Diphtheria, Pertussis, Tetanus Vaccination: Yes Review of Systems - Review of Systems EENT: No symptoms reported Cardiovascular: See HPI Respiratory: See HPI Gastrointestinal: See HPI Genitourinary: No symptoms reported Female Genitourinary: No symptoms reported Musculoskeletal: No symptoms reported Skin: See HPI Hematologic/Lymphatic: No symptoms reported Neurological/Psychological: No symptoms reported Physical Exam - Vital signs Vitals: Temp Pulse Resp BP Pulse Ox 99.2 F 103 H 16 130/85 H 97 09/08/18 15:10 09/08/18 15:10 09/08/18 15:10 09/08/18 15:10 09/08/18 15:10 - Notes Notes: PHYSICAL EXAMINATION: Reviewed vital signs and charting by RN GENERAL: Alert, interacts well. No acute distress. HEAD: Normocephalic, atraumatic. EYES: Pupils equal, round.. Extraocular movements intact. ENT: Oral mucosa moist, tongue midline. NECK: Full range of motion. Trachea midline. LUNGS: Clear to auscultation bilaterally, no wheezes, rales, or rhonchi. No respiratory distress. HEART: Regular rate and rhythm. No murmur EXTREMITIES: Moves all 4 extremities spontaneously. No edema, No cyanosis. Abscess on dorsal right arm, antecubital area. No area of fluctuance felt. PSYCH: Normal affect, normal mood. SKIN: Warm, dry, normal turgor. No rashes or lesions noted. Course - Re-evaluation Re-evalutation: 09/08/18 18:16 Generally well-appearing 23-year-old female presents for abscess on right arm after IV heroin use. Will use ultrasound to see if there is a drainable fluid pocket. 09/08/18 18:55 Used ultrasound and there was extensive cobblestoning consistent with cellulitis. No evidence of any drainable pocket seen on ultrasound. Color mode used and there was blood flow in the area. No I&D will be performed and we will treat for MRSA and MSSA cellulitis due to patient's history of IV drug use. Patient will get first doses of Keflex 500 mg p.o. 1 time and Bactrim DS p.o. 1 time, then prescribed a 7-day course of Keflex and Bactrim here and will be safe and stable for discharge. - Vital Signs Vital signs: Temp Pulse Resp BP Pulse Ox 99.2 F 103 H 16 130/85 H 97 09/08/18 15:10 09/08/18 15:10 09/08/18 15:10 09/08/18 15:10 09/08/18 15:10 Discharge - Discharge Clinical Impression: Cellulitis Qualifiers: Site of cellulitis: extremity Site of cellulitis of extremity: upper extremity Laterality: right Qualified Code(s): L03.113 - Cellulitis of right upper limb Condition: Good Disposition: HOME, SELF-CARE Instructions: Cephalexin ([facility]), MRSA Cellulitis ([facility]), Trimethoprim-Sulfa ([facility]) Additional Instructions: The rash is likely due to infection of your skin. You need to take the antibiotics as prescribed. Do not stop even if the rash goes away until you have completed all the antibiotics. The area of redness was traced out here in the emergency department with a marking pen. You need to return to emergency department if the redness spreads outside of this area by more than 2 cm in any direction. You should also return if you develop fevers with temperature greater than 101, persistent vomiting, worsening pain, or have any other symptoms that are concerning to you. Prescriptions: Cephalexin Monohydrate [Keflex 500 mg Capsule] 500 mg PO QID 7 Days #28 capsule Sulfamethoxazole/Trimethoprim [Bactrim Ds Tablet] 1 each PO BID 7 Days #14 tablet
[2018-09-08] MEDS ORDERED: CEPHALEXIN 500 MG CAPSULE PO ONE (18:51)
[2018-09-08] MEDS ORDERED: SULFAMETHOXAZOLE/TRIMETHOPRIM 800-160 MG TABLET PO ONE (18:51)
[2018-09-08 19:17] VITALS: BP 107/70
== END 2018-09-08 19:16 | disposition home or self-care (01) ==
LOC: ER 14:58
DX: L03.113 Cellulitis of right upper limb (principal); L02.413 Cutaneous abscess of right upper limb; F11.90 Opioid use, unspecified, uncomplicated; F12.10 Cannabis abuse, uncomplicated; F17.200 Nicotine dependence, unspecified, uncomplicated
CPT/HCPCS: 99283; 73080; J3490